=== PATIENT | female | born 1980 | race Caucasian/White ===

== ENCOUNTER 2023-05-25 17:41 | Emergency (ER) | payer OTHER, SELFPAY ==
[2023-05-25 17:50] VITALS: BP 113/71; PULSE 97; RESP 16; TEMP 36.8; O2SAT 100
--- NOTE | 2023-05-25 17:57 | ED.SKABFB ---
HPI - Skin/Abscess/Foreign Bdy General Chief complaint: Skin/Abscess/Foreign Body Stated complaint: Abcess under right butt cheek Source: patient and RN notes reviewed Mode of arrival: ambulatory History of Present Illness HPI narrative: 43-year-old female presents to the [facility] complaining abscess to their right groin area. Patient has a history of abscesses to her inguinal areas, he was recently see with the general surgeon where she had 1 recently drained in her right inguinal region. Patient states the wound has improved she has developed another one to her right inguinal region inferior to her right labia. Patient states she is recently diagnosed with diabetes has been working on weight loss and was placed on metformin for glucose control. Patient was not placed on antibiotics when she had her last abscess drained. Patient states it is affecting her bowel movements due to pain. Patient states the pain is worse with movement. Related Data Home Medications Medication Instructions Recorded Confirmed metformin 1,000 mg tablet 1,000 mg PO BID 05/25/23 05/25/23 naproxen sodium 220 mg tablet 220 mg PO DAILY 05/25/23 05/25/23 (Aleve) Allergies Allergy/AdvReac Type Severity Reaction Status Date / Time clindamycin AdvReac Intermediate nausea Verified 05/25/23 17:59 Review of Systems Review of Systems: CONSTITUTIONAL: Denies fever, chills, or sweats. EYES: Denies visual changes, redness, or discharge. ENT: Denies otalgia and sore throat CARDIOVASCULAR: Denies chest pain, palpitations, or edema. RESPIRATORY: Denies cough or dyspnea. GASTROINTESTINAL: Denies abdominal pain, nausea, vomiting, or diarrhea. GENITOURINARY: Denies dysuria or hematuria. SKIN: Positive for abscess to right inguinal region. MUSCULOSKELETAL: Denies back pain, joint pain, or myalgia. NEUROLOGIC: Denies headache, numbness, or weakness. Pertinent positives per HPI. PMFSH Comments At the time of my signature, I reviewed and agree with the nursing past medical, surgical, social, and family history. There is no relevant family history pertinent to the patient complaint. Exam Narrative: GENERAL: This is a well-nourished, well-developed patient, in no apparent distress. HEAD: normocephalic, atraumatic. EYES: Sclera clear/white. Vision is grossly intact. EARS: External ears normal, auditory canals clear and without drainage, TMs normal without perforation. Hearing grossly intact. NOSE: External nose normal with no obvious nasal discharge, nares without redness, no rhinorrhea. THROAT: Mucous membranes moist, posterior pharynx clear. NECK: Neck supple, non-tender without lymphadenopathy, masses or thyromegaly. CARDIOVASCULAR: Regular rate and rhythm without murmurs, gallops, or rubs. RESPIRATORY: Clear to auscultation. Breath sounds equal bilaterally. No wheezes, rales, or rhonchi. GASTROINTESTINAL: Abdomen soft, non-tender, nondistended. Bowel sounds are active. No hepato-splenomegaly, or palpable masses. No guarding. SKIN: There is an abscess measuring about 4 cm x 4 cm to her right inguinal region and inferior to her right labia. The abscess is erythemic with an area fluctuance, and indurated. No discharge is present NEURO: awake, alert, and oriented to person, place and time. There were no obvious focal neurologic abnormalities. EXTREMITIES: No clubbing, cyanosis, or edema. No joint tenderness, effusion, or edema noted. BACK: Nontender without deformity or crepitus. No flank tenderness. Course Course Level of Care: Express Care Visit Vital Signs Vital signs: Vital Signs Temperature 98.3 F 05/25/23 17:50 Pulse Rate 97 05/25/23 17:50 Respiratory Rate 16 05/25/23 17:50 Blood Pressure 113/71 05/25/23 17:50 Pulse Oximetry 100 05/25/23 17:50 Oxygen Delivery Room Air 05/25/23 17:50 Temperature 98.3 F 05/25/23 18:00 Pulse Rate 97 05/25/23 18:00 Respiratory Rate 16 05/25/23 18:00 Blood Pressure 1
[2023-05-25 18:00] VITALS: BP 113/71; PULSE 97; RESP 16; TEMP 36.8; O2SAT 100
== END 2023-05-25 18:26 | disposition home or self-care (01) ==
PROVIDERS: Emergency Provider Nurse Practitioner Family; PCP Physician Assistant
DX: L02.214 Cutaneous abscess of groin (principal); E11.9 Type 2 diabetes mellitus without complications; Z79.84 Long term (current) use of oral hypoglycemic drugs
CPT/HCPCS: 10060; 87070; 87205; 99203; G0463